=== PATIENT | female | born 1950 | race Caucasian/White ===

== ENCOUNTER 2022-04-25 08:06 | Observation (INO) ==
--- NOTE | 2022-03-22 10:51 | PAT Medication Instructions ---
Medication Instructions Date of Service March 22, 2022 Home Medications atorvastatin 40 mg tablet 40 mg PO HS cyanocobalamin (vitamin B-12) 1,000 mcg tablet (Vitamin B-12) 1,000 mcg PO HS ibuprofen 200 mg tablet 600 mg PO Q6H PRN levothyroxine 25 mcg tablet 25 mcg PO QPM losartan 25 mg tablet 25 mg PO HS ropinirole 0.25 mg tablet 0.5 mg PO HS PRN tramadol 50 mg tablet 25 - 50 mg PO HS PRN ASK your surgeon for instructions ibuprofen 200 mg tablet 600 mg PO Q6H PRN Take evening before surgery atorvastatin 40 mg tablet 40 mg PO HS cyanocobalamin (vitamin B-12) 1,000 mcg tablet (Vitamin B-12) 1,000 mcg PO HS levothyroxine 25 mcg tablet 25 mcg PO QPM losartan 25 mg tablet 25 mg PO HS ropinirole 0.25 mg tablet 0.5 mg PO HS PRN(if needed) tramadol 50 mg tablet 25 - 50 mg PO HS PRN(if needed) Other Notes NOTHING TO EAT OR DRINK AFTER MIDNIGHT. If you have any questions please call us at [phone] or [phone] or [phone] or [phone]
--- NOTE | 2022-03-26 09:39 | Anesthesiology Consultation ---
Date of Service March 26, 2022 Assessment & Plan (1) Encounter for pre-operative examination: - Pt vaccinated. Returned from [place] 03/21/22. - Outpatient joint assessment: Patient is currently scheduled for inpatient pathway. If re-evaluated pending system levels during current pandemic/surgeon requests outpatient pathway, patient is not ideal candidate for outpatient joint program from anesthesia standpoint. Chart Review Chart Review: Acceptable Risk for Surgery and Patient seen in Pre Admission Testing Teaching & Discussion Pre-Anesthesia Teaching/Discussion Notes: Instructed NPO after midnight before surgery, except medications with 15 cc of water. Medication instructions provided according to the PAT guidelines. History Surgery Operation Date: 04/25/22 08:50 Proposed Procedures p Left Total Knee Arthroplasty - Addison Steele MD Height/Weight Height: 5 ft 6 in Weight: 77.7 kg Allergies Allergy/AdvReac Type Severity Reaction Status Date / Time No Known Drug Allergies Allergy . Verified 03/22/22 08:33 Medications Home Medications Medication Instructions Recorded Confirmed Last Taken atorvastatin 40 mg tablet 40 mg PO HS 03/22/22 03/22/22 Unknown cyanocobalamin (vitamin B-12) 1,000 mcg PO HS 03/22/22 03/22/22 Unknown 1,000 mcg tablet (Vitamin B-12) ibuprofen 200 mg tablet 600 mg PO Q6H PRN Pain 03/22/22 03/22/22 Unknown levothyroxine 25 mcg tablet 25 mcg PO QPM 03/22/22 03/22/22 Unknown losartan 25 mg tablet 25 mg PO HS 03/22/22 03/22/22 Unknown ropinirole 0.25 mg tablet 0.5 mg PO HS PRN Restless Leg(S) 03/22/22 03/22/22 Unknown tramadol 50 mg tablet 25 - 50 mg PO HS PRN Pain 03/22/22 03/22/22 Unknown Past Medical History Medical History (Updated 03/26/22 @ 10:14 by Leilani Wang PA-C) Hyperlipidemia Hypertension controlled, stable per pt Hypothyroidism Restless leg syndrome Skin sensitivity Pt requests "cloth tape" as has noticed with age her skin is sensitive; denies allergy; states PCP is aware and advised was normal skin changes with aging Patient denies h/o stroke, seizures, heart attack, heart failure, DM, blood clots or blood transfusions. Exercise / Class Metabolic Activity II 4-5 Yardwork/Stairs/Walk up hill (denies CP or SOB with 1 FOS) Past Family History Family History Other No family history of adverse response to anesthesia Past Surgical History Surgical History History of arthroscopy of left knee History of bilateral cataract extraction History of cholecystectomy History of colonoscopy History of tonsillectomy History of tooth extraction full upper denture Hx of decompressive lumbar laminectomy Past Anesthesia History No Hx of Anesthesia Complications and No Family Hx of Anesthesia Complications History of PONV No Hx of PONV and Hx of Motion Sickness Social History Smoking Status: Never smoker Do You Dip or Chew Tobacco: No Hx Alcohol Use: No Hx Substance Use: No substance use type: does not use Review of Systems Snoring, denies witnessed apneas. Patient denies chest pain, shortness of breath, dyspnea on exertion, reflux, fever, chills, cough, wheezing, or palpitations. Physical Exam Vital Signs Vitals BP 133/83 P 83 TEMP 98.6 SP02 98% on RA RESP 17 Physical Full cervical extension range of motion without pain TMD 3.5 finger breadths Mallampati Score 3 Dentition: full upper denture; denies chipped or loose teeth, caps/crowns, implants or bridges Lungs: normal respiratory effort. Clear throughout to auscultation, no adventitious breath sounds Cardiac: regular rate and rhythm, no murmurs noted Carotid arteries: negative bruit bilat Lab Results Anesthesia Preop Results Results Anesthesia Widget: WBC 7.25 K/ul (4.8-10.8) 03/26/22 Hgb 13.0 g/dl (12.0-16.0) 03/26/22 Hct 39.8 % (34.1-44.9) 03/26/22 Plt 302 K/uL (130-400) 03/26/22 PT 10.2 Seconds (9.0-12.0) 03/26/22 PTT 27.4 Seconds (21.0-31.0) 03/26/22 INR 1.0 (0.9-1.1) 03/26/22 Blood Type A Negative 03/26/22 Antibody Screen NEGATIVE 03/26/22 Testing Laboratory Results 02/27/2022 SODIUM: 139 POTASSIUM: 4.1 CHLORIDE: 107 CO2: 28 BUN: 12 CREATININE: 0.7 GLUCOSE: 91 Electrocardiogram Date: 03/26/22 NSR, rate 80 bpm Chest X-Ray Date: 03/26/22 Cardiac silhouette is enlarged. Atherosclerosis of the aorta. No pneumothorax, pleural effusion, airspace consolidation or overt pulmonary edema. Bones of the chest appear grossly intact. Surgical clips of the upper abdomen. IMPRESSION: No acute process. COVID-19 Risk Screen Screening Information COVID-19 Screen Date: 03/26/22 Exposure 21 Days Family/Household +COVID Last 21 Days: No Exposure 10 Days Any COVID Exposure Last 10 Days: No Symptoms Last 10 Days Experienced COVID Sx Last 10 Days: No + COVID 0-90 Days COVID + in Last 0-90 Days: No Risk Plan COVID Risk Plan: No Risk Identified (to surgeon's discretion if preop COVID testing needed.)
--- NOTE | 2022-04-21 12:05 | History and Physical Report ---
DATE OF ADMISSION: 04/25/2022. CHIEF COMPLAINT: Bilateral knee pain and discomfort, left side a bit worse than right. HISTORY OF PRESENT ILLNESS: A 71-year-old female referred by my partner, Dr. Cortez for treatment of her knees. She has got a long history of bilateral knee pain and discomfort that has gradually scott en worse over time. She did have a left knee arthroscopy done by Dr. Rasmussen about 10 years or so ago. She did okay for the first 5 years or so, but that has gotten worse and increased pain over the past 5 years. Left knee bothers her more than right. It is mostly medial pain, but some global francisco n. The knee has become stiff, the more she limps and the more she walks. She would like to proceed with definitive treatment. PAST MEDICAL HISTORY: 1. Hypothyroidism. 2. Elevated cholesterol. 3. Back pain. PAST SURGICAL HISTORY: 1. Back surgery in 2004 for L4 decompression. 2. Left knee scope by Dr. Rasmussen 2012. ALLERGIES: None. CURRENT MEDICATIONS: 1. Atorvastatin. 2. Losartan. 3. Ropinirole. 4. Tramadol. 5. Levothyroxine. 6. Tylenol. SOCIAL HISTORY: A 71-year-old female. She lives in [place]. She is single and lives alone. Cordero s not smoke or drink. FAMILY HISTORY: Significant for cancer, blood clots and lung disease. REVIEW OF SYSTEMS: Negative for diabetes. She denies any neurologic problem, vascular problem, or b leeding disorders. No history of DVT or PE. No known bleeding problems. PHYSICAL EXAMINATION: GENERAL: Shows a healthy-appearing middle-aged female. Looks to be in pretty good health. HEENT: Benign. NECK: Supple. No lymphadenopathy. LUNGS: Clear to auscultation. HEART: Regular rate and rhythm. ABDOMEN: Soft, nontender, nondistended. EXTREMITIES: Grossly neurovascularly intact except as follows. Examination of both knees revealed patient walks with a varus alignment to both knees. She has got b yanni hypertrophy medially. Small knee effusion. Range of motion of the left is 10-120, in the right is 10-125. No instability in either side. No pain with hip motion. X-RAYS: X-rays of both knees reveal advanced bilateral knee DJD. She has complete loss of medial carey int space in both knees. She got osteophytes primarily medially. A pretty equal in severity on x-ra y. ASSESSMENT: A 71-year-old female with advanced bilateral knee degenerative joint disease with a hist ory of knee arthroscopy in the left in the past. She has failed conservative measures and would like to proceed with definitive treatment. The left knee is bothering more than right. PLAN: We will proceed with left knee replacement. The risks and benefits of this procedure were exp lained to the patient and include but not limited to DVT, PE, , infection, neurological injury, vascular injury, bleeding problem, pain, limited range of motion, stiffness, failure to relieve her s ymptoms, incomplete relief of symptoms, need for further surgery in the future. The patient understa nds and desires to proceed. Informed consent was obtained. She does live by herself. She is going to have some family come and stay with her. She would like t o be discharged to home using home health. Job ID: [id number]
[~2022-04-25 08:06] MED LIST: ACETAMINOPHEN 500 MG TAB PO SCH; BUPIVACAINE 0.5 % 5 MG/1 ML MPF 30ML VIAL ONE; BUPIVACAINE LIPOSOME/PF 266 MG, BUPIVACAINE/EPINEPHRINE 50 ML, SODIUM CHLORIDE 0.9% 30 ... INFIL SCH; FAMOTIDINE 20 MG TAB PO SCH; LR 500ML BOLUS, THEN 15ML/HR IV SCH; LR 60ML/HR IV SCH; METOCLOPRAMIDE HCL 10 MG TABLET PO SCH; ROPIVACAINE 0.5% 5 MG/ML 30 ML VIAL ONE; TRANEXAMIC ACID 1,000 MG **IV Intra-op IV SCH; ceFAZolin 2000MG 2,000 MG/15 ML SYR IV SCH
--- NOTE | 2022-04-25 08:57 | History & Physical Bridge Note ---
Date of Service April 25, 2022 History & Physical Bridge Note I have examined the patient, reviewed the History & Physical and in the interval since the performance of the History & Physical I have noted the following changes of clinical significance: no changes noted
[2022-04-25] MEDS ORDERED: MIDAZOLAM HCL 1 MG/ML 2ML VIAL ONE (09:10)
[2022-04-25] MEDS ORDERED: fentaNYL citrate 100 MCG/2 ML VIAL ONE ×2 (09:11→13:03)
[2022-04-25] MEDS ORDERED: LIDOCAINE 2% 20 MG/ML 5 ML SYR IV ONE (10:24)
[2022-04-25] MEDS ORDERED: PROPOFOL IV EMULSION 10 MG/ML 20 ML VIAL IV ONE (10:24)
[2022-04-25] MEDS ORDERED: ePHEDrine sulfate 50 MG/ML AMP IV PRN (10:27)
[2022-04-25] MEDS ORDERED: ONDANSETRON INJ 2 MG/ML 2 ML VIAL IV PRN (10:27)
[2022-04-25] MEDS ORDERED: ATROPINE SULFATE 0.1 MG/ML 10ML SYR IV PRN (10:27)
[2022-04-25] MEDS ORDERED: fentaNYL citrate 100 MCG/2 ML VIAL IV PRN (10:27)
[2022-04-25] MEDS ORDERED: BUPIVACAINE/EPINEPHRINE 0.25% 1:200,000 30 ML VIAL ONE (11:12)
[2022-04-25] MEDS ORDERED: SODIUM CHLORIDE 0.9% PF 50 ML VIAL ONE (11:12)
[2022-04-25] MEDS ORDERED: BUPIVACAINE LIPOSOME 1.3% 266 MG/20 ML VIAL ONE (11:12)
[2022-04-25] MEDS ORDERED: PHENYLEPHRINE 100MCG/ML 5ML SYR ONE (12:07)
--- NOTE | 2022-04-25 13:26 | Operative Report ---
PG Post Operative Report Pre & Post Diagnosis Operation Date: 04/25/22 10:40 Pre-Op Diagnosis: Left knee degenerative joint disease. Post-Op Diagnosis: Left knee degenerative joint disease. I identified the patient and participated in the time-out.: Yes Procedure Operation Date: 04/25/22 10:40 Actual Procedures p Left Total Knee Arthroplasty(Left) - Addison Steele MD Surgeon Addison Steele MD Chute Boss Des Trejo PA-C Estimated Blood Loss 50 Findings Consistent with Post-Op Diagnosis Operative findings revealed extensive grade 4 [id number] disease in all 3 compartments most severe in the medial side with significant eburnation. She had osteophytes in all 3 compartments. She had a flexion contracture of at least 15 degrees. Moderate-sized joint effusion. Fluids 1100 cc. Specimens Left knee sent for pathology. Drains None Anesthesia Type Spinal MAC Complications none Disposition Accompanied Patient To Recovery: No Indications Patient is a 72-year-old female has had a long history of left knee problems. She did have her knee scoped about [address] Tyson Arias. Over the past several years she developed increased pain discomfort and stiffness in her knee. She failed conservative measures. She elected proceed with total knee arthroplasty. Description of Procedure Operative implants consist of: 1 Biomet Vanguard size 65 left posterior stabilized femoral component. 2. Biomet size 67 tibial tray. 3. 10 mm posterior stabilized polyethylene insert. 4. 28 x 8 all Paller E patella. Patient was taken the operating, identified, placed on the operating table supine position but all contact areas were properly padded. IV antibiotics tried by anesthesia team. Spinal anesthetic and abductor canal block had provided in the holding area. A Rocha catheter was placed in a sterile fashion. A left factor was then placed in the left lower extremities then prepped and draped in usual sterile fashion. The left leg was elevated exsanguinated with use of an Esmarch interspaced at 300 mmHg. An anterior approach left knee was then performed to longitudinal incision centered over the patella. Sharp dissection was carried through subcutaneous tissue down the extensor mechanism. A medial parapatellar arthrotomy incision was made. Some subperiosteal dissection was carried out medially. The fat pad was dissected from Neath patella tendon. Lateral patellofemoral ligament was released. Patella subluxated laterally and the knee was flexed. The osteophytes taken off distal femur. The ACL and PCL were then released from distal femur the tibia subluxated anteriorly. The external tibial alignment jig was then placed in the interface the tibia and adjusted 14 mm medially. Proximal tibial cut was made remove about a millimeter or 2 of bone from most deficient aspect medial tibial plateau. Some osteophytes were taken off medial and posterior medially. The tibia sized to a size 67. We did downsize this slightly in order to get appropriate rotation of the tibial tray. Attention drawn the femur. The distal femur stem with a sharp drill. Intramedullary canal was suction. A left 5 degree valgus cutting guide was placed. The distal femoral cutting block was pinned in place but distal femoral cut was made to take an additional 3 mm of bone off distal femur. The femur was then sized to a size 65. The AP cutting block was pinned parallel to the epicondylar axis which was 4 degrees of external rotation. The anterior cut, anterior chamfer, posterior cut, posterior chamfer cuts were made. The box cutting guide was placed in just slight lateral and the box cut was made. The knee was flexed. The remnants of the medial and lateral menisci were excised. The osteophytes were taken off the posterior aspect of femur. A trial femoral component was placed. The tibial tray was pinned in maximum external rotation and the drill and stem punch were used to create the defect in proximal tibia for the tibial tray. Knee was then trialed and the 10 mm insert fit most appropriately. It was a little bit lax but I elected to leave her knee a little bit loose just because of her stiffness preoperatively. Attention was then drawn to the patella. The patella was cleaned of all soft tissues. Patella thickness measured 22 mm in thickness was cut down to 14. Was sized to a size 28 patella. The lug holes were drilled for the 28 patella. Lateral osteophytes removed. Patella was placed in the patella tracked appropriately with the no thumbs test. Attention drawn to place the permanent components. All trial components were removed. A bone plug was placed in the distal femur limit blood loss. A double batch Palacos G cement was mixed. Biomet [employer] size 65 left posterior stabilized femoral component, size 67 tibial tray, a 10 mm posterior stabilized polyethylene insert, and a 28 x 8 all Paller patella were then cemented in place. The knee was brought out into full extension until cement hardened. Final cement check was then performed. Pericapsular tissues were injected with total 100 cc of combination of 20 cc of Exparel, 30 cc normal saline, 50 cc of quarter percent Marcaine with epinephrine. The extensor mechanism then closed with combination 1 PDS suture #1 Vicryl suture in [id number] fashion. Extensor mechanism was checked and found to be intact the subcutaneous tissue then closed with 2 Dexon suture in a buried interrupted fashion skin was closed skin leroy. Legs then cleaned and dried and sterile dressing was Xeroform, 4 x 4's, sterile cast padding, Torres bandage were applied. Patient then transferred to the recovery room in stable condition. Patient tolerated the procedure well and there were no complications. Des Trejo, my physician radiology assistant, was present for the entire procedure. His assistance was essential and required for appropriate patient positioning, prepping and draping, surgical exposure, performing the technical details of the operation, placement the implants, closure of the wound, and placement of the sterile bandage. I attest to the content of the Intraoperative Record and any orders documented therein. Any exceptions are noted below.
--- NOTE | 2022-04-25 13:55 | XRay Report ---
XR knee LT 1 or 2V routine HISTORY: 72 years-old Female Surgical Post Op [left knee total joint arthroplasty COMPARISON: Knee radiographs 02/19/2022 TECHNIQUE: 2 views of the left knee FINDINGS: Total joint arthroplasty with patellar resurfacing. Anterior midline skin leroy are present along w ith expected postoperative soft tissue swelling with deep tissue air. IMPRESSION: Total joint arthroplasty with expected postoperative changes. ACT 112: Negative or not required by law. The above report was generated using voice recognition software. It may contain grammatical, syntax o r spelling errors. Electronically signed by: Waqar Gonzalez M.D. 04/25/2022 1:54 PM
--- NOTE | 2022-04-25 14:10 | Anesthesiology Progress Note ---
Date of Service April 25, 2022 Anesthesia Post Procedure Vital Signs Vital Signs: Temp Pulse Pulse Resp BP Pulse Ox O2 Del Method 04/25/22 14:05 90 19 139/80 95 Room Air 04/25/22 13:55 92 H 20 153/86 H 95 Room Air 04/25/22 13:45 99 H 20 120/89 95 Room Air 04/25/22 13:35 102 H 19 160/89 H 96 Room Air 04/25/22 13:25 100 H 19 140/82 98 Oxymask 04/25/22 13:17 36.1 C L 106 H 17 129/67 98 Oxymask 04/25/22 08:35 37 C 82 20 169/105 H 97 Room Air O2 Flow Rate 04/25/22 14:05 04/25/22 13:55 04/25/22 13:45 04/25/22 13:35 04/25/22 13:25 6 04/25/22 13:17 6 04/25/22 08:35 Pain Intensity Left Knee: Pain Intensity: 2 Transfer of Care Handoff Completed per policy Notes Mental Status: alert / awake / arousable Patient Amnestic to Procedure: Yes Nausea / Vomiting: adequately controlled Pain: adequately controlled Airway Patency, RR, SpO2: stable & adequate BP & HR: stable & adequate Hydration State: stable & adequate Neuraxial Anesthesia: was administered and sensory block is resolving Anesthetic Complications: no major complications apparent
[2022-04-25] MEDS ORDERED: oxyCODONE HCL IR 5 MG TAB (IMMEDIATE RELEASE) PO PRN (15:15)
[2022-04-25] MEDS ORDERED: traMADol HCL 50 MG TABLET PO PRN (15:15)
[2022-04-25] MEDS ORDERED: rOPINIRole HCL 0.25 MG TABLET PO PRN (15:15)
[2022-04-25] MEDS ORDERED: MAGNESIUM HYDROXIDE SUSP 30 ML UDC PO PRN (15:15)
[2022-04-25] MEDS ORDERED: ALUMINUM/MAGNESIUM SUSP 30 ML UDC PO PRN (15:15)
[2022-04-25] MEDS ORDERED: bisacodyL 10 MG SUPP PR PRN (15:15)
[2022-04-25] MEDS ORDERED: NALOXONE HCL 0.4 MG/1 ML VIAL/CARP IV PRN (15:15)
[2022-04-25] MEDS: HYDROmorphone INJ 0.5 MG/0.5 ML SYR IV PRN (15:48)
[2022-04-25] MEDS: KETOROLAC TROMETHAMINE 15 MG/ML VIAL IV SCH ×2 (15:48→22:26)
[2022-04-25] MEDS: SODIUM CHLORIDE 0.9% 1000ML 1,000 ML IV SCH (15:54)
[2022-04-25] MEDS: ACETAMINOPHEN 500 MG TAB PO SCH ×2 (16:34→22:12)
[2022-04-25] MEDS: ASCORBIC ACID 500 MG TAB PO SCH (17:39)
[2022-04-25] MEDS ORDERED: TRANEXAMIC ACID / 0.7% NACL 1,000 MG/100 ML BAG IV SCH (19:15)
[2022-04-25] MEDS: ceFAZolin 1000MG 1,000 MG/7.5 ML SYR IV SCH (20:02)
[2022-04-25] MEDS: ONDANSETRON INJ 2 MG/ML 2 ML VIAL IV PRN (20:02)
[2022-04-25] MEDS ORDERED: LOSARTAN POTASSIUM 25 MG TAB PO SCH (21:00)
[2022-04-25] MEDS ORDERED: CYANOCOBALAMIN (B-12) 500 MCG TABLET PO SCH (21:00)
[2022-04-25] MEDS ORDERED: LEVOTHYROXINE SODIUM 25 MCG TABLET PO SCH (21:00)
[2022-04-25] MEDS ORDERED: ATORVASTATIN 40 MG TAB PO SCH (21:00)
[2022-04-25] MEDS ORDERED: SENNA 8.6 MG TAB PO SCH (21:00)
[2022-04-25] MEDS: DOCUSATE SODIUM 100 MG CAP PO SCH (22:09)
[2022-04-25] MEDS: ASPIRIN 81 MG ECTAB PO SCH (22:09)
[2022-04-25] MEDS: METOCLOPRAMIDE HCL INJ 5 MG/ML 2 ML VIAL IV PRN (23:23)
[2022-04-26] MEDS: ONDANSETRON INJ 2 MG/ML 2 ML VIAL IV PRN ×2 (01:47→07:50)
[2022-04-26] MEDS: SODIUM CHLORIDE 0.9% 1000ML 1,000 ML IV SCH (02:19)
[2022-04-26] MEDS: ceFAZolin 1000MG 1,000 MG/7.5 ML SYR IV SCH (03:13)
[2022-04-26] MEDS: KETOROLAC TROMETHAMINE 15 MG/ML VIAL IV SCH ×2 (03:13→10:43)
[2022-04-26] MEDS: HYDROmorphone INJ 0.5 MG/0.5 ML SYR IV PRN (03:50)
[2022-04-26] MEDS: ACETAMINOPHEN 500 MG TAB PO SCH ×2 (05:54→13:51)
[2022-04-26 06:47] LABS: Hematocrit (blood only) 30.9 % (34.1-44.9); Hemoglobin 10.6 g/dl (12.0-16.0); Mean Corpuscular Hemoglobin 28.8 pg (25.0-34.0); Mean Corpuscular Hgb Conc 34.3 g/dL (32.0-36.0); Mean Platelet Volume 9.2 fL (9.4-12.3); Platelet Count 234 K/uL (130-400); RDW Standard Deviation 39.8 fL (36.4-46.3); Red Blood Count 3.68 M/uL (3.93-5.22); White Blood Count 7.41 K/ul (4.8-10.8)
[2022-04-26 07:22] LABS: BUN Creatinine Ratio 15.6 (10-20); Calcium 8.2 mg/dl (8.5-10.1); Creatinine Clr Calc Pharmacy 67.1 ml/min; Est GFR (African American) 88.2 ml/min; Est GFR (Non-African American) 76.1 ml/min; Potassium 3.9 mmol/L (3.5-5.1)
[2022-04-26] MEDS ORDERED: dexAMETHasone 10 MG in SYRINGE 0 ML IV SCH (08:00)
--- NOTE | 2022-04-26 08:14 | Progress Notes ---
DATE OF SERVICE: 04/26/2022. SUBJECTIVE: A 72-year-old female postoperative day 1 from left knee replacement. She is doing prett y well this morning. Was pretty painful last evening, but seems better this morning. No chest pain or shortness of breath. Not feeling dizzy or lightheaded. OBJECTIVE: VITAL SIGNS: Temperature 36.9. Vital signs are stable. PHYSICAL EXAMINATION: GENERAL: Shows a pleasant, elderly female. Lying in bed. She is awake, alert and oriented. LUNGS: Clear to auscultation. HEART: Regular rate and rhythm. ABDOMEN: Soft, nontender, nondistended. EXTREMITIES: Grossly neurovascularly intact except as follows: Examination of the left leg reveals the leg to be well aligned. Dressing is clean, dry and intact. She can dorsiflex and plantarflex he r foot appropriately. She is neurologically intact. LABORATORY DATA: Hemoglobin 10.6. Hematocrit 30.9. Electrolytes are pending. ASSESSMENT: A 72-year-old female postoperative day 1 from a left knee replacement. Pretty painful l ast night, but doing better this morning. She is neurologically intact. PLAN: 1. DVT prophylaxis includes thigh-high TEDs, SCDs, and aspirin twice a day. 2. PT, OT, weightbear as tolerated. Left total knee protocol. 3. Pain control, doing okay with current pain regimen. 4. Disposition: We are going to discharge to home with some home health. We will see how she does in therapy today. Job ID: [id number]
[2022-04-26] MEDS: ASCORBIC ACID 500 MG TAB PO SCH (08:24)
[2022-04-26] MEDS: ASPIRIN 81 MG ECTAB PO SCH (08:24)
[2022-04-26] MEDS: DOCUSATE SODIUM 100 MG CAP PO SCH (08:34)
[2022-04-26] MEDS ORDERED: MULTIVITAMIN TAB PO SCH (09:00)
[2022-04-26] MEDS ORDERED: DOCUSATE SODIUM/SENNA 50/8.6MG TAB PO SCH (09:00)
[2022-04-26] MEDS: METOCLOPRAMIDE HCL INJ 5 MG/ML 2 ML VIAL IV PRN (09:44)
--- NOTE | 2022-04-29 07:02 | Discharge Summary ---
Date of Service April 29, 2022 Discharge Data Procedures Performed Operation Date: 04/25/22 10:40 Actual Procedures p Left Total Knee Arthroplasty(Left) - Addison Steele MD Hospital Course (1) Status post total left knee replacement: This is a 72 year old patient admitted on 04/25/22 and underwent total knee arthroplasty. She tolerated the procedure well and there were no complications. Transferred to the PACU post op and later to the orthopedic floor for further care. She was given ancef for antibiotic prophylaxis. She was also given EMILEE stockings, SCDs, and aspirin for DVT prophylaxis. Hemoglobin, hematocrit, and vital signs were monitored during her hospital stay and remained stable. Did not require any blood transfusions. There were no complications during her hospital stay. By post op day #1 the patient was tolerating a regular diet, pain was reasonably controlled with oral pain medicine, and she was participating in physical therapy. On post op day #1 the patient was discharged home and set up with home health care. She was given printed discharge instructions including prescriptions for extra strength tylenol, aspirin, oxycodone, toradol, reglan, and senokot. Continue physical therapy, weight bearing as tolerated. Continue EMILEE stockings. Follow up approximately 2 weeks post op or sooner if there are problems or concerns. Coding Level of Care Code None Diagnoses Status post total left knee replacement Z96.652
== END 2022-04-26 17:10 | disposition home health service (06) ==
LOC: 3E 08:06 → ASU 08:06

== ENCOUNTER 2023-09-05 09:37 | Observation (INO) ==
--- NOTE | 2023-08-14 14:57 | PAT Medication Instructions ---
Medication Instructions Date of Service August 14, 2023 Home Medications Medication Instructions Recorded 3-in-1 Commode #1 ea 04/03/22 acetaminophen 500 mg capsule 1,000 mg (2 x 500 mg) PO TID Pain 04/23/22 30 days #180 caps ropinirole 0.25 mg tablet 0.5 mg PO HS PRN acetaminophen 500 mg capsule 1,000 mg (2 x 500 mg) PO TID Take morning of surgery With a small sip of water, OTHERWISE NOTHING TO EAT OR DRINK AFTER MIDNIGHT: acetaminophen 500 mg capsule 1,000 mg (2 x 500 mg) PO TID Take evening before surgery acetaminophen 500 mg capsule 1,000 mg (2 x 500 mg) PO TID ropinirole 0.25 mg tablet 0.5 mg PO HS PRN(if needed) Other Notes If you have any questions please call us at [phone] or [phone] or [phone] or [phone]
--- NOTE | 2023-08-19 08:47 | Anesthesiology Consultation ---
Date of Service August 19, 2023 Assessment & Plan (1) Encounter for pre-operative examination: - Outpatient joint assessment: Patient is currently scheduled for inpatient pathway. If re-evaluated and patient/surgeon requests outpatient pathway, patient is not recommended candidate for outpatient joint program from anesthesia standpoint. Chart Review Chart Review: Acceptable Risk for Surgery and Patient seen in Pre Admission Testing Teaching & Discussion Pre-Anesthesia Teaching/Discussion Notes: Instructed NPO after midnight before surgery, except medications with 15 cc of water. Medication instructions provided according to the PAT guidelines. History Surgery Operation Date: 09/05/23 08:50 Proposed Procedures p Right Total Knee Arthroplasty - Addison Steele MD Height/Weight Height: 5 ft 6 in Weight: 81.647 kg Allergies Allergy/AdvReac Type Severity Reaction Status Date / Time No Known Drug Allergies Allergy . Verified 08/14/23 10:46 adhesive tape AdvReac Intermediate skin Verified 08/19/23 08:35 sensitivity Medications Home Medications Medication Instructions Recorded Confirmed Last Taken ropinirole 0.25 mg tablet 0.5 mg PO HS PRN Restless Leg(S) 03/22/22 08/14/23 04/24/22 22:00 3-in-1 Commode #1 ea 04/03/22 Unknown acetaminophen 500 mg capsule 1,000 mg (2 x 500 mg) PO TID Pain 04/23/22 08/14/23 Unknown 30 days #180 caps Past Medical History Medical History DJD of both shoulders Hearing loss Hyperlipidemia no meds Hypertension currently not on medication Hypothyroidism currently not any medication Nausea and vomiting after administration of anesthetic agent severe after Left TKA 04/2022--states "I threw up from the when they brought me out of the OR until the next day" Restless leg syndrome Skin sensitivity Pt requests "cloth tape" as has noticed with age her skin is sensitive; denies allergy; states PCP is aware and advised was normal skin changes with aging Patient denies h/o stroke, seizures, heart attack, heart failure, DM, blood clots/DVTs or blood transfusions. 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 Past Anesthesia History No Hx of Anesthesia Complications and No Family Hx of Anesthesia Complications History of PONV History of PONV (with left TKA-denies other episodes of PONV or needing scop patch in past) and Hx of Motion Sickness (in childhood) Social History Smoking Status: Never smoker Do You Dip or Chew Tobacco: No Hx Alcohol Use: No Hx Substance Use: No substance use type: does not use Review of Systems Snoring, denies witnessed apneas. Patient denies chest pain, shortness of breath, dyspnea on exertion, reflux, fever, chills, cough, wheezing, or palpitations. Physical Exam Vital Signs Vitals BP 151/88 P 75 TEMP 98.4 SP02 97% on RA RESP 17 Physical Patient resting comfortably in chair in no acute distress, alert and oriented, responding appropriately throughout visit Full cervical extension range of motion without pain TMD 3.5 finger breadths Mallampati Score 3 Dentition: broken tooth-pt instructed to call surgeon's office prior to dental appointment, full upper denture; denies loose teeth, caps/crowns, implants or bridges Lungs: normal respiratory effort. Good air movement, clear throughout to auscultation, no adventitious breath sounds Cardiac: regular rate and rhythm, no murmurs noted Carotid arteries: negative bruit bilat Lab Results Anesthesia Preop Results Results Anesthesia Widget: WBC 6.43 K/ul (4.8-10.8) 08/19/23 Hgb 13.1 g/dl (12.0-16.0) 08/19/23 Hct 38.3 % (37.0-47.0) 08/19/23 Plt 298 K/uL (130-400) 08/19/23 Na 137 mmol/L (136-145) 08/19/23 K 4.0 mmol/L (3.5-5.1) 08/19/23 Cl 104 mmol/L (98-107) 08/19/23 CO2 25 mmol/L (21-32) 08/19/23 BUN 17 mg/dl (6-23) 08/19/23 Creat 0.80 mg/dl (0.6-1.2) 08/19/23 Glucose Level 90 mg/dl (70-99(Fasting)) 08/19/23 PT 10.0 Seconds (9.0-12.0) 08/19/23 PTT 27 Seconds (21-31) 08/19/23 INR 0.9 (0.9-1.1) 08/19/23 Blood Type A Negative 08/19/23 Antibody Screen NEGATIVE 08/19/23 Testing Electrocardiogram Date: 08/19/23 NSR, rate 72 bpm Chest X-Ray Date: 08/19/23 Mild elevation of the right hemidiaphragm. No significant change compared to the prior study. No acute process.
--- NOTE | 2023-09-01 11:26 | History & Physical Report ---
Date of Service September 01, 2023 Assessment & Plan (1) Right knee DJD: 73-year-old female now about a year and a half out from left knee replacement with advanced right knee DJD. She failed conservative measures. She is happy with the left knee and would like to have her right knee replaced. Plan: Will take him to the operating do a right total knee replacement. The risks Mente this procedure explained the patient and include but not limited to DVT PE infection neurological injury vascular bleeding palm pain limb range of motion sepsis fairly with symptoms incomplete relief of symptoms excetra. The patient understands and desires to proceed. Informed consent was obtained. Patient did pretty well pain booth with the last surgery but had a lot of nausea. Will use Decadron as well as Zofran to try and limit nausea. Will limit the narcotics. She is planned to be discharged home using [facility] program. (2) Status post total left knee replacement: History of Present Illness Chief Complaint: . Persistent right knee pain and discomfort. Primary Care Provider: NANDINI Allison . Patient is a 73-year-old female who presents now for surgical treatment of her right knee. Got a long history of knee problems had her left knee replacement about a year and a half ago. She is done pretty well with this. She continues to be bothered by right knee pain discomfort. We have been treating her with injection which helped for about a week and that is about it. She describes global pain. A little more she is up and onto more it hurts. She limps more as the day goes on. He is happy with the left knee and would like to have her right knee fixed. Allergies Allergy/AdvReac Type Severity Reaction Status Date / Time No Known Drug Allergies Allergy . Verified 08/14/23 10:46 adhesive tape AdvReac Intermediate skin Verified 08/19/23 08:35 sensitivity Home Medications Medication Instructions Recorded Confirmed Type ropinirole 0.25 mg tablet 0.5 mg PO HS PRN Restless Leg(S) 03/22/22 08/14/23 History 3-in-1 Commode #1 ea 04/03/22 Rx acetaminophen 500 mg capsule 1,000 mg (2 x 500 mg) PO TID Pain 04/23/22 08/14/23 Rx 30 days #180 caps Past Med/Surg History Medical History Hearing loss Nausea and vomiting after administration of anesthetic agent severe after Left TKA 04/2022--states "I threw up from the when they brought me out of the OR until the next day" DJD of both shoulders Skin sensitivity Pt requests "cloth tape" as has noticed with age her skin is sensitive; denies allergy; states PCP is aware and advised was normal skin changes with aging Restless leg syndrome Hypertension currently not on medication Hypothyroidism currently not any medication Hyperlipidemia no meds Surgical History Status post total left knee replacement 04/2022 SAB L4-L5 2 attempts + PNB. 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 Physical Exam . Physical examination of the right knee reveals patient ambulates independently. She got slight varus alignment to her knee. She has about a 5 to 10 degree flexion contracture and bends to 120 degrees. No pain with hip motion. No instability. She is neurologically intact. Examination left knee reveals a well-healed incision. She has anatomic alignment to the knee. Range of motion 0-1 25. Good straight leg raise. Constitutional WD/WN, vitals as above Neck trachea midline, no thyromegaly Respiratory normal respiratory effort, lungs clear to auscultation Cardiovascular RRR, no murmur, no edema Gastrointestinal (Abdomen) normal bowel sounds, soft, nontender, no hepatosplenomegaly Results & Data Results & Data Laboratory Results . Diagnostic Findings . X-rays of the right knee reviewed. Shows complete loss of medial joint space. Got osteophytes medially. Tricompartment disease. The x-rays of the left knee reveal a well position knee replacement. Compose looks me good position. No signs of problems. PG Care Time/CCT Total # of Minutes Spent Total Time Spent with Patient: Total time spent is greater than 50% in coordination of care (as documented) at patient's floor/unit and/or counseling patient: Coding Level of Care Code None Diagnoses Right knee DJD M17.11 Status post total left knee replacement Z96.652
[~2023-09-05 09:37] MED LIST changes: -ACETAMINOPHEN 500 MG TAB PO SCH; +ATROPINE SULFATE 0.1 MG/ML 10ML SYR IV PRN; +BUPIVACAINE 0.25% PF 30 ML VIAL ONE; -BUPIVACAINE 0.5 % 5 MG/1 ML MPF 30ML VIAL ONE; +BUPIVACAINE 0.5 % 5 MG/1 ML PF 10ML VIAL ONE; -BUPIVACAINE LIPOSOME/PF 266 MG, BUPIVACAINE/EPINEPHRINE 50 ML, SODIUM CHLORIDE 0.9% 30 ... INFIL SCH; -FAMOTIDINE 20 MG TAB PO SCH; -LR 500ML BOLUS, THEN 15ML/HR IV SCH; -LR 60ML/HR IV SCH; -METOCLOPRAMIDE HCL 10 MG TABLET PO SCH; +MIDAZOLAM HCL 1 MG/ML 2ML VIAL ONE; +ONDANSETRON INJ 2 MG/ML 2 ML VIAL IV PRN; +PROPOFOL IV EMULSION 10 MG/ML 20 ML VIAL IV ONE; -ROPIVACAINE 0.5% 5 MG/ML 30 ML VIAL ONE; -TRANEXAMIC ACID 1,000 MG **IV Intra-op IV SCH; -ceFAZolin 2000MG 2,000 MG/15 ML SYR IV SCH; +ePHEDrine sulfate 50 MG/ML AMP IV PRN; +fentaNYL citrate PF 100 MCG/2 ML VIAL IV PRN; +fentaNYL citrate PF 100 MCG/2 ML VIAL ONE
[2023-09-05] MEDS: ACETAMINOPHEN 500 MG TAB PO SCH ×2 (10:02→14:51)
[2023-09-05] MEDS: CeleBREX 200 MG CAP PO SCH (10:02)
[2023-09-05] MEDS: dexAMETHasone**PF** 10 MG/ML VIAL IV SCH (10:02)
[2023-09-05] MEDS: LR 500ML BOLUS, THEN 15ML/HR IV SCH (10:02)
[2023-09-05] MEDS: FAMOTIDINE 20 MG TAB PO SCH (10:03)
[2023-09-05] MEDS: METOCLOPRAMIDE HCL 10 MG TABLET PO SCH (10:03)
[2023-09-05] MEDS: LR 60ML/HR IV SCH (10:03)
--- NOTE | 2023-09-05 11:04 | History & Physical Bridge Note ---
Date of Service September 05, 2023 History & Physical Bridge Note I have examined the patient, reviewed the History & Physical and in the interval since the performance of the History & Physical I have noted the following changes of clinical significance: no changes noted
[2023-09-05] MEDS: ceFAZolin 2000MG 2,000 MG/15 ML SYR IV SCH ×2 (11:07→20:43)
[2023-09-05] MEDS: ROPIV 0.5% 246mg, Ketorolac 30mg, EPINEPHrine 0.5mg in NSS INFIL SCH (11:47)
[2023-09-05] MEDS: ORTHO JOINT ANESTHETIC ONE (11:47)
[2023-09-05] MEDS: TRANEXAMIC ACID 1,000 MG **IV Intra-op IV SCH (11:59)
[2023-09-05] MEDS ORDERED: MIDAZOLAM HCL 1 MG/ML 2ML VIAL ONE (12:06)
[2023-09-05] MEDS ORDERED: PROPOFOL IV EMULSION 10 MG/ML 20 ML VIAL IV ONE (12:23)
--- NOTE | 2023-09-05 12:54 | Operative Report ---
PG Post Operative Report Pre & Post Diagnosis Operation Date: 09/05/23 10:40 Pre-Op Diagnosis: Right Knee Advanced Degenerative Joint Disease Post-Op Diagnosis: Right Knee Advanced Degenerative Joint Disease I identified the patient and participated in the time-out.: Yes Procedure Operation Date: 09/05/23 10:40 Actual Procedures p Right Total Knee Arthroplasty(Right) - Addison Steele MD Surgeon Addison Steele MD Photolith Operator Des Trejo PA-C Estimated Blood Loss 50 Findings Consistent with Post-Op Diagnosis Operative findings with advanced right knee DJD. Extensive grade 4 [id number] disease most severe in the medial compartment. She had a varus deformity to her knee and about a 10 to 15 degree flexion contracture. Moderate-sized joint effusion. Specimens Right femoral head sent for pathology. Anesthesia Type Spinal MAC Complications none Disposition Accompanied Patient To Recovery: No Indications Patient is a 73-year-old female whose had a long history of knee problems over the years. She been through extensive conservative treatments became less successful over time. She had her left knee replaced about a year and a half ago and is done well from this. She continues limited by right knee pain. X- rays have revealed advanced knee arthritis. She elected proceed with total knee arthroplasty. Description of Procedure Operative implants consist of: 1 Biomet Vanguard size 65 right Po stabilized femoral component. 2. Biomet size 67 tibial tray. 3. 10 mm post stabilized polyethylene insert. 4. 31 x 8 all poly patella. The patient was taken to the op room, identified, placed on the operating table in the supine position. All contact areas were appropriately padded. IV antibiotics tried by anesthesia team. A spinal anesthetic and abductor canal block had provided in the holding area. A Rocha catheter was placed in sterile fashion . A right thigh tourniquet was then placed and the right lower extremity was then prepped and draped in the usual sterile fashion. The right leg was elevated exsanguinated with use of an Esmarch and the tourniquet was placed at 300 mmHg. An anterior approach of the right knee was then performed through a longitudinal incision centered over the patella. Sharp dissection was carried through subcutaneous tissue down the extensor mechanism. A medial parapatellar arthrotomy incision was made. Some subperiosteal dissection was carried out medially but the fat pad was resected from Neath patella tendon. Lateral patellofemoral ligament was released. Patella subluxated laterally and the knee was flexed. The osteophytes taken on distal femur. The ACL and PCL were then released from distal femur the tibia subluxated anteriorly. The external tibial alignment jig was then placed in the interface the tibia and adjusted 14 mm medially. Proximal tibial cut was made to remove about a millimeter bone from most deficient aspect the medial tibial plateau. Some osteophytes taken off medially. The tibia sized to a size 67. Attention drawn the femur. The distal femur examined the sharp drop with intramedullary canal was suction. Right 5 degree valgus cutting guide was placed. Distal femoral cutting block was pinned in place. Distal femoral cut was made to take an additional 3 mm bone off distal femur. The femur was then sized to a size 65. The AP cutting block was pinned parallel to the epicondylar axis which was 3 degrees of external rotation. The anterior cut, anterior chamfer, posterior cut, posterior chamfer cuts were made. The box cutting guide was placed in the just slight lateral and the box cut was made. The knee was flexed. The remnants of the medial and lateral menisci were excised. The osteophytes taken off the posterior aspect the femur. A trial femoral component was placed. The tibial tray was pinned Mary external rotation and the drill and stem punch used to create defect in proximal tibia for the tibial tray. Knee was then trialed with a 10 mm insert fit most appropriately. Attention drawn the patella. The patella was cleaned of all soft tissue. Patella thickness measured 21 mm in thickness was cut down to 14. Was sized to a size 31 patella. The lug holes were drilled for 31 patella. The lateral osteophyte was removed. Patella button was placed. Knee was taken through range of motion patella tracked nicely with no thumbs test. Attention drawn to place the permanent components. All trial components were removed. Bone plug was placed in the distal femur to limit blood loss. A double batch [place] G cement was mixed. Biomet Vanguard size 65 right Po stabilized femoral component, size 67 tibial tray, a 10 mm post stabilized polyethylene insert, and a 31 x 8 all poly patella then cemented in place. Knee was brought out in full extension till cement hardened. Final cement check was then performed. The pericapsular tissues were injected with total of 100 cc of joint mixed. Patient did receive 1 g tranexamic acid. The tourniquet was then let down for final tourniquet time of 50 minutes. Hemostasis assured use electrocautery. Extensor Meclomen closed with combination 1 PDS suture #1 Vicryl suture in a [id number] fashion. Extensor Meclomen checked found to be intact through the subcutaneous tissue then closed with 2 Dexon suture in a buried interrupted fashion skin was closed skin leroy. Leg was then cleaned and dried and sterile dressing was Xeroform, 4 fours, sterile cast padding, Torres bandage were applied. Patient then transferred to the recovery room in stable condition. Patient tolerated the procedure well and there are no complications. Des Trejo, my physician dental front office assistant, was present for the entire procedure. His assistance was essential and required for appropriate patient positioning, prepping and draping, surgical exposure, performing the technical details of the operation, placement the implants, closure of the wound, and placement of the sterile bandage. I attest to the content of the Intraoperative Record and any orders documented therein. Any exceptions are noted below.
--- NOTE | 2023-09-05 13:52 | Anesthesiology Progress Note ---
Date of Service September 05, 2023 Anesthesia Post Procedure Vital Signs Vital Signs: Temp Pulse Pulse Resp BP BP Pulse Ox 09/05/23 13:50 94 H 12 133/89 93 09/05/23 13:40 95 H 13 143/75 H 92 09/05/23 13:30 96 H 14 147/78 H 95 09/05/23 13:20 105 H 20 145/85 H 96 09/05/23 13:10 104 H 20 150/91 H 96 09/05/23 13:00 106 H 20 142/9 H 97 09/05/23 12:50 118 H 16 154/91 H 100 09/05/23 12:42 36.0 C L 121 H 14 141/82 H 96 09/05/23 10:08 36.8 C 92 H 20 207/128 H 98 O2 Del Method O2 Flow Rate 09/05/23 13:50 Room Air 09/05/23 13:40 Room Air 09/05/23 13:30 Room Air 09/05/23 13:20 Room Air 09/05/23 13:10 Room Air 09/05/23 13:00 Room Air 09/05/23 12:50 Nasal Cannula 6 09/05/23 12:42 Nasal Cannula 6 09/05/23 10:08 Room Air Pain Intensity Bilateral Medial Head: Pain Intensity: 2 Transfer of Care Handoff Completed per policy Notes Mental Status: alert / awake / arousable and participated in evaluation Patient Amnestic to Procedure: Yes Nausea / Vomiting: adequately controlled Pain: adequately controlled Airway Patency, RR, SpO2: stable & adequate BP & HR: stable & adequate Hydration State: stable & adequate Neuraxial Anesthesia: was administered and sensory block is resolving Anesthetic Complications: no major complications apparent and Pt Satisfied with anesthetic care
[2023-09-05] MEDS ORDERED: ONDANSETRON INJ 2 MG/ML 2 ML VIAL IV PRN (14:27)
[2023-09-05] MEDS ORDERED: NALOXONE HCL 0.4 MG/1 ML VIAL/CARP IV PRN (14:27)
[2023-09-05] MEDS ORDERED: HYDROmorphone INJ 0.5 MG/0.5 ML SYR IV PRN (14:27)
[2023-09-05] MEDS ORDERED: MAGNESIUM HYDROXIDE SUSP 30 ML UDC PO PRN (14:27)
[2023-09-05] MEDS ORDERED: bisacodyL 10 MG SUPP PR PRN (14:27)
[2023-09-05] MEDS ORDERED: METOCLOPRAMIDE HCL INJ 5 MG/ML 2 ML VIAL IV PRN (14:27)
[2023-09-05] MEDS ORDERED: ALUMINUM/MAGNESIUM SUSP 30 ML UDC PO PRN (14:27)
[2023-09-05] MEDS: SODIUM CHLORIDE 0.9% 1,000 ML IV SCH (14:35)
[2023-09-05] MEDS: oxyCODONE HCL IR 5 MG TAB (IMMEDIATE RELEASE) PO PRN (15:28)
[2023-09-05] MEDS: ASCORBIC ACID 500 MG TAB PO SCH (16:55)
--- NOTE | 2023-09-05 17:23 | XRay Report ---
XR knee RT 1 or 2V routine CLINICAL HISTORY: Postoperative evaluation. COMPARISON: Right knee radiographs July 26, 2023. FINDINGS: Alignment of the total right knee arthroplasty is anatomic. There is no periprosthetic fra cture or unexpected radiopaque foreign body. There are skin leroy. IMPRESSION: Expected findings following total right knee arthroplasty. ACT 112: Negative or not required by law. Electronically signed by: Mustapha Hurst M.D. 09/05/2023 5:22 PM
[2023-09-05] MEDS: TRANEXAMIC ACID / 0.7% NACL 1,000 MG/100 ML BAG IV SCH (18:08)
[2023-09-05] MEDS: ASPIRIN 81 MG ECTAB PO SCH (20:43)
[2023-09-05] MEDS: DOCUSATE SODIUM 100 MG CAP PO SCH (20:43)
[2023-09-05] MEDS: SENNA 8.6 MG TAB PO SCH (20:44)
[2023-09-05] MEDS ORDERED: rOPINIRole HCL 0.25 MG TABLET PO PRN (21:00)
[2023-09-05] MEDS ORDERED: SENNA 8.6 MG TAB PO SCH (21:00)
[2023-09-05] MEDS: KETOROLAC TROMETHAMINE 15 MG/ML VIAL IV SCH (21:39)
[2023-09-06 06:58] LABS: Hematocrit (blood only) 27.5 % (37.0-47.0); Hemoglobin 9.6 g/dl (12.0-16.0); Mean Corpuscular Hemoglobin 28.5 pg (25.0-34.0); Mean Corpuscular Hgb Conc 34.9 g/dL (32.0-36.0); Mean Corpuscular Volume 81.6 fL (80.0-100.0); Platelet Count 255 K/uL (130-400); RDW Coefficient of Variation 13.2 % (11.5-14.5); RDW Standard Deviation 38.8 fL (36.4-46.3); Red Blood Count 3.37 M/uL (4.20-5.40)
--- NOTE | 2023-09-06 07:12 | Surgery Progress Note ---
Date of Service September 06, 2023 Assessment & Plan (1) Status post right knee replacement: Plan: 73-year-old female postop day 1 from right knee replacement. She is doing well. Her big concern was nausea and this time around she has done great so far. No chest pain or shortness of breath. Pains controlled. Plan: 1. DVT prophylaxis including thigh-high teds, SCDs, aspirin twice a day. 2. PT/OT. Weight-bear as tolerated right total knee protocol. 3. Pain control doing pretty well with current pain regimen. 4. Disposition plan to discharge home with some home health if she does okay in therapy today. Admission and Anticipated Discharge Date Admission Date: September 05, 2023 Subjective 73-year-old female postop day 1 from right knee replacement. She is doing well. She is not having any nausea or vomiting at this time around. Pain is controlled. No chest pain or shortness of breath. She is hoping to go home. Physical Exam Physical Exam: Physical exam shows a pleasant elderly female. As she is lying bed looks co mfortable. Examination of the right leg reveals dressing be clean dry and intact. She can dorsiflex and plantarflex her foot appropriately. She can do a good straight leg raise. Respiratory: normal respiratory effort, lungs clear to auscultation Cardiovascular: RRR, no murmur, no edema Gastrointestinal (Abdomen): normal bowel sounds, soft, nontender, no hepatosplenomegaly Results & Data Vital Signs (Past 12 Hours) Vital Signs Temp Pulse Resp BP Pulse Ox O2 Del Method 09/06/23 03:31 36.9 C 88 16 122/69 96 Room Air 09/05/23 23:09 37.2 C 89 16 143/77 H 95 Room Air 09/05/23 19:33 36.7 C 92 H 18 149/94 H 96 Room Air Laboratory Results Hemoglobin 9.6. Hematocrit 37.5. Electrolytes are pending. PG Care Time/CCT Total # of Minutes Spent Total Time Spent with Patient: Total time spent is greater than 50% in coordination of care (as documented) at patient's floor/unit and/or counseling patient: Coding Level of Care Code 21122 Post Operative Follow-Up Diagnoses Status post right knee replacement Z96.651
[2023-09-06 07:29] LABS: BUN Creatinine Ratio 21.3 (10-20); Calcium 8.7 mg/dl (8.6-10.3); Creatinine Clr Calc Pharmacy 55.6 ml/min; Est GFR (African American) 68.8 ml/min; Est GFR (Non-African American) 59.3 ml/min; Potassium 4.1 mmol/L (3.5-5.1)
[2023-09-06] MEDS: dexAMETHasone 10 MG in SYRINGE 0 ML IV SCH (08:01)
[2023-09-06] MEDS: MULTIVITAMIN TAB PO SCH (08:02)
--- NOTE | 2023-09-10 06:35 | Discharge Summary ---
Date of Service September 10, 2023 Discharge Data Procedures Performed Operation Date: 09/05/23 10:40 Actual Procedures p Right Total Knee Arthroplasty(Right) - Addison Steele MD Hospital Course (1) Status post right knee replacement: This is a 73 year old patient admitted on 09/05/23 and underwent total knee arthroplasty. She tolerated the procedure well and there were no complications. Transferred to the PACU post op and later to the orthopedic floor for further care. She was given ancef for antibiotic prophylaxis. She was also given EMILEE stockings, SCDs, and aspirin for DVT prophylaxis. Hemoglobin, hematocrit, and vital signs were monitored during her hospital stay and remained stable. Did not require any blood transfusions. There were no complications during her hospital stay. By post op day #1 the patient was tolerating a regular diet, pain was reasonably controlled with oral pain medicine, and she was participating in physical therapy. On post op day #1 the patient was discharged home and set up with home health care. She was given printed discharge instructions including prescriptions for extra strength tylenol, aspirin, cefadroxil, ketorolac, zofran, oxycodone, and senokot. Continue physical therapy, weight bearing as tolerated. Continue EMILEE stockings. Follow up approximately 2 weeks post op or sooner if there are problems or concerns. Coding Level of Care Code None Diagnoses Status post right knee replacement Z96.651
== END 2023-09-06 10:29 | disposition home health service (06) ==
LOC: ASU 09:37 → 3E 09:37